=== PATIENT | female | born 1955 | race American Indian/Alaskan Native ===

== ENCOUNTER 2017-05-02 23:29 | Emergency (ER) | payer OTHER ==
[2017-05-03] MEDS ORDERED: TYLENOL PO ONE (00:58)
[2017-05-03] MEDS ORDERED: TYLENOL ONE (00:59)
--- NOTE | 2017-05-03 02:18 | XRay Report ---
FINAL REPORT EXAM: XR SHOULDER 2+V LT HISTORY: left shoulder pain TECHNIQUE: Four views of the left shoulder were obtained. FINDINGS: The AC joint and glenohumeral joint appear intact. The subacromial space appears normal. The soft tissues are unremarkable. IMPRESSION: Within normal limits.
--- NOTE | 2017-05-03 02:18 | XRay Report ---
FINAL REPORT EXAM: XR HUMERUS 2+V LT HISTORY: left arm pain TECHNIQUE: Two views of the left humerus were obtained FINDINGS: There is no evidence of fracture or soft tissue injury. The glenohumeral and elbow joints do not show any acute changes. IMPRESSION: Within normal limits.
--- NOTE | 2017-05-03 09:55 | Emergency Department Report ---
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 MD Complaint: Injury to:: left Onset/Timin -: week(s) Other Extremity Injury: Shoulder: Left Other Injuries: none Place: work Severity scale (0 -10): 3 Improves With: none Worsens With: movement of extremity, other (push house keeping cart) Context: other (none ) Associated Symptoms: denies: weakness, numbness, neck pain, nausea/vomiting - Related Data Previous Rx's Medication Instructions Recorded Last Taken Type Cyclobenzaprine [Flexeril] 10 mg PO BID PRN #20 tablet 05/03/17 Unknown Rx Fluticasone [Flonase] 1 spray NS QDAY #1 bottle 05/03/17 Unknown Rx Loratadine 10 mg PO DAILY #30 tablet 05/03/17 Unknown Rx Naproxen [Naprosyn TAB] 500 mg PO BID PRN #30 tablet 05/03/17 Unknown Rx Allergies Allergy/AdvReac Type Severity Reaction Status Date / Time No Known Allergies Allergy Unverified 05/03/17 00:51 ED Review of Systems ROS: Stated complaint: URI SX Other details as noted in HPI Constitutional: denies: chills, fever Eyes: denies: eye pain, eye discharge, vision change ENT: congestion Respiratory: cough. denies: shortness of breath, wheezing Cardiovascular: denies: chest pain, palpitations Endocrine: no symptoms reported Gastrointestinal: denies: abdominal pain, nausea, diarrhea Genitourinary: denies: urgency, dysuria, discharge Musculoskeletal: arthralgia, myalgia Skin: denies: rash, lesions Neurological: denies: headache, weakness, paresthesias Psychiatric: denies: anxiety, depression Hematological/Lymphatic: denies: easy bleeding, easy bruising ED Past Medical Hx - Past Medical History Previous Medical History?: No - Surgical History Past Surgical History?: No - Social History Smoking Status: Current Every Day Smoker Substance Use Type: Alcohol - Medications Home Medications: Home Medications Medication Instructions Recorded Confirmed Last Taken Type Cyclobenzaprine [Flexeril] 10 mg PO BID PRN #20 tablet 05/03/17 Unknown Rx Fluticasone [Flonase] 1 spray NS QDAY #1 bottle 05/03/17 Unknown Rx Loratadine 10 mg PO DAILY #30 tablet 05/03/17 Unknown Rx Naproxen [Naprosyn TAB] 500 mg PO BID PRN #30 tablet 05/03/17 Unknown Rx ED Physical Exam - General Limitations: No Limitations General appearance: alert, in no apparent distress - Head Head exam: Present: atraumatic, normocephalic - Eye Eye exam: Present: normal appearance - Expanded ENT Exam Expanded Mouth exam: Present: tongue normal. Absent: tongue elevation Throat exam: Negative: tonsillar erythema, tonsillomegaly, tonsillar exudate, R peritonsillar mass, L peritonsillar mass - Neck Neck exam: Present: normal inspection, full ROM. Absent: lymphadenopathy, thyromegaly - Respiratory Respiratory exam: Present: normal lung sounds bilaterally. Absent: respiratory distress, wheezes, stridor, chest wall tenderness - Cardiovascular Cardiovascular Exam: Present: regular rate, normal rhythm. Absent: systolic murmur, diastolic murmur, rubs, gallop - GI/Abdominal GI/Abdominal exam: Present: soft, normal bowel sounds. Absent: distended, tenderness, guarding, rebound, rigid, organomegaly, mass, bruit, pulsatile mass , hernia - Rectal Rectal exam: Present: deferred - Extremities Exam Extremities exam: Present: tenderness (left ac joint ), normal capillary refill. 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 Absent : full ROM, swelling, abrasion, laceration, ecchymosis, deformity, crepidus, dislocation, erythema Elbow exam: Present: normal inspection, full ROM Forearm Wrist exam: Present: normal inspection, full ROM Hand Wrist exam: Present: normal inspection, full ROM Neuro motor exam: Present: wrist extension intact, thumb opposition intact, thumb IP flexion intact, thumb adduction intact, fingers 2-5 abduction intact Neurosensory exam: Present: 2-point discrimination, radial nerve intact, ulnar nerve intact, median nerve intact Vascular: Present: normal capillary refill, radial pulse, brachial pulse, ulnar pulse. Absent: vascular compromise, Pallo, pulse deficit radial art, pulse deficit ulnar art, pulse deficit brachial art - Back Exam Back exam: Present: normal inspection, full ROM. Absent: tenderness, CVA tenderness (R), CVA tenderness (L), muscle spasm, paraspinal tenderness, vertebral tenderness, rash noted - Neurological Exam Neurological exam: Present: alert, oriented X3, normal gait, reflexes normal. Absent: CN II-XII intact - Psychiatric Psychiatric exam: Present: normal affect, normal mood - Skin Skin exam: Present: warm, dry, intact, normal color. Absent: rash ED Course Vital Signs 05/03/17 05/03/17 05/03/17 00:31 00:51 01:05 Temperature 99.1 F 99.1 F Pulse Rate 93 H 93 H Respiratory 18 18 18 Rate Blood Pressure 129/79 129/79 O2 Sat by Pulse 93 95 Oximetry ED Medical Decision Making - Radiology Data Radiology results: report reviewed, image reviewed shoulder and humerous xray no fracture no soft tissue abnormality - Medical Decision Making xrays normal , mild ac joint tenderness rom restricted by pain that is reproducible by deep palpation section chief equal no swelling no ecchymosis no deformity liquor establishment manager<3 sec plan, nsaids, muscle relaxants rest moist heat therapy, follow up with pcp 2-3 days , URI flonase, zyrtec, follow up with pcp pt verbalized agreement and understanding of discharge plan. Critical care attestation.: If time is entered above; I have spent that time in minutes in the direct care of this critically ill patient, excluding procedure time. ED Disposition Clinical Impression: Muscle strain of left shoulder Qualifiers: Encounter type: initial encounter Qualified Code(s): S46.912A - Strain of unspecified muscle, fascia and tendon at shoulder and upper arm level, left arm , initial encounter URI (upper respiratory infection) Qualifiers: URI type: unspecified viral URI Qualified Code(s): J06.9 - Acute upper respiratory infection, unspecified Disposition: - TO HOME OR SELFCARE Is pt being admited?: No Does the pt Need Aspirin: No Condition: Good Instructions: Rotator Cuff Injury (ED), Rotator Cuff Tendinitis (ED) Prescriptions: Cyclobenzaprine [Flexeril] 10 mg PO BID PRN #20 tablet PRN Reason: Muscle Spasm Fluticasone [Flonase] 1 spray NS QDAY #1 bottle Loratadine 10 mg PO DAILY #30 tablet Naproxen [Naprosyn TAB] 500 mg PO BID PRN #30 tablet PRN Reason: Pain Referrals: TANA STROUD MD [Referring] - 3-5 Days Forms: Work/School Release Form(ED) Time of Disposition: 10:02
[2017-05-03 10:25] VITALS: BP 164/76
== END 2017-05-03 10:24 | disposition home or self-care (01) ==
LOC: ED 23:29
DX: S46.912A Strain of unspecified muscle, fascia and tendon at shoulder and upper arm level, left arm, initial encounter (principal); J06.9 Acute upper respiratory infection, unspecified; F17.200 Nicotine dependence, unspecified, uncomplicated; X50.3XXA Overexertion from repetitive movements, initial encounter; Y93.89 Activity, other specified; Y92.89 Other specified places as the place of occurrence of the external cause; Y99.8 Other external cause status
CPT/HCPCS: 99284